=== PATIENT | female | born 1960 | race Caucasian/White ===

== ENCOUNTER → 2020-05-05 | Outpatient (CLI) | payer OTHER ==
[~2020-05-05] MED LIST: ALPR0.5T10 PO; AMLO-150 PO; ATOR-2 PO; DULO30CA2 PO; ENOX40SY4 SQ; GABA600T7 PO; HYDR-3240 PO; LEVO50TA5 PO; LIPA1CAP61 PO; MELO15TA24 PO; METH750T87 PO; NICO-486 TD; OMEP-110 PO; ONDA4TAB10 PO; POLY17PO5 PO; TRAM50TA2 PO
== END | disposition home or self-care (01) ==
LOC: CFH 14:26
PROVIDERS: ATTEND Orthopaedic Surgery
DX: S72.141D Displaced intertrochanteric fracture of right femur, subsequent encounter for closed fracture with routine healing (principal); X58.XXXD Exposure to other specified factors, subsequent encounter

== ENCOUNTER 2021-05-18 11:37 | Emergency (ER) | payer SELFPAY ==
[~2021-05-18] VITALS: Ht 152.4 cm; Wt 43.3 kg
[~2021-05-18 11:37] MED LIST changes: +HYDR-2214 PO; -HYDR-3240 PO
--- NOTE | 2021-05-18 11:58 | NUR ---
PT PLACED IN GOWN. PA IS BEDSIDE NOW.
--- NOTE | 2021-05-18 12:00 | NUR ---
ASSUMED CARE OF PT. SHE IS HERE W/ C/O RIGHT SHOULDER PAIN AND INABILITY TO MOVE THE LEFT ARM. SHE REPORTS LEFT ARM COMPLETELY NUMB, RIGHT HAND IS NUMB.
--- NOTE | 2021-05-18 12:07 | NUR ---
pt to radiology now
--- NOTE | 2021-05-18 12:10 | NUR ---
PT BEING WHEELED TO RADIOLOGY, SHE ASKED IF THERE WAS ORDER FOR RIGHT SIDE WHICH THERE ISN'T. ASKED CHAVEZ OSCAR AND HE SAID PT HAD NO C/O W/ HIM. HE WAS GOING TO SPEAK W/ PT BUT SHE WAS IN RADIOLOGY. UNABLE TO RECHECK PULSE AT THIS TIME.
[2021-05-18] MEDS ORDERED: KETOROLAC 30 MG/1 ML ONE (12:16)
--- NOTE | 2021-05-18 12:26 | NUR ---
PT MEDICATED PER TARUN ALAMO. CALL LIGHT AND BELONGING W/IN REACH.
[2021-05-18] MEDS ORDERED: KETOROLAC 30 MG/1 ML IM ONE (12:30)
--- NOTE | 2021-05-18 13:42 | NUR ---
PT REC'VD DISCHARGE INSTRUCTIONS AND EDUCATION. PT PROVIDED A LIST OF AREA CLINICS. PT HAD NO FURTHER QUESTIONS. PT AMBULATED TO CO AREA, STEADY GAIT.
[2021-05-18 13:43] VITALS: BP 114/83
== END 2021-05-18 13:47 | disposition home or self-care (01) ==
LOC: ED 12:30
DX: M25.512 Pain in left shoulder (principal); M25.511 Pain in right shoulder; G89.29 Other chronic pain; I10 Essential (primary) hypertension; Z86.39 Personal history of other endocrine, nutritional and metabolic disease
CPT/HCPCS: 73030; 96372; 99283; J1885; 96361; 96374; 96375; 99285